=== PATIENT | female | born 1980 | race African-American/Black ===

== ENCOUNTER 2016-06-05 20:03 | Emergency (ER) | payer OTHER ==
[~2016-06-05] VITALS: Ht 162.6 cm; Wt 81.8 kg
[2016-06-05 20:18] VITALS: BP 155/103
[2016-06-05] MEDS ORDERED: NORCO 5/3251 TABLET PO (21:45)
== END 2016-06-05 22:14 | disposition home or self-care (01) ==
LOC: EME 20:03
DX: S05.01XA Injury of conjunctiva and corneal abrasion without foreign body, right eye, initial encounter (principal); S93.601A Unspecified sprain of right foot, initial encounter; H11.31 Conjunctival hemorrhage, right eye; S00.81XA Abrasion of other part of head, initial encounter; V29.3XXA Motorcycle rider (driver) (passenger) injured in unspecified nontraffic accident, initial encounter; F17.200 Nicotine dependence, unspecified, uncomplicated
CPT/HCPCS: 73610; 73630; 99281; 99284

== ENCOUNTER 2016-09-18 08:03 | Emergency (ER) | payer OTHER ==
[~2016-09-18] VITALS: Ht 165.1 cm; Wt 97.9 kg
[~2016-09-18 08:03] MED LIST: NORCO 5/3251 TABLET PO
[2016-09-18 10:09] VITALS: BP 132/88
== END 2016-09-18 10:09 | disposition home or self-care (01) ==
LOC: EME → EDBD 08:03 → EME 10:09
DX: S51.811A Laceration without foreign body of right forearm, initial encounter (principal); Z23 Encounter for immunization; W25.XXXA Contact with sharp glass, initial encounter
CPT/HCPCS: 99281; 99284

== ENCOUNTER 2016-12-03 09:10 | Emergency (ER) | payer OTHER ==
[~2016-12-03] VITALS: Ht 170.2 cm; Wt 93.6 kg
[2016-12-03 10:18] VITALS: BP 148/74
== END 2016-12-03 10:19 | disposition home or self-care (01) ==
LOC: EME 09:10
DX: S60.212A Contusion of left wrist, initial encounter (principal); Y09 Assault by unspecified means; F17.200 Nicotine dependence, unspecified, uncomplicated
CPT/HCPCS: 73110; 99281; 99284